=== PATIENT | female | born 1985 | race African-American/Black ===

== ENCOUNTER 2025-05-02 17:08 | Emergency (ER) | payer BC, SELFPAY ==
[2025-05-02] MEDS ORDERED: Ketorolac Tromethamine 30 MG (1 mL) VIAL ONE (17:57)
== END 2025-05-02 18:08 | disposition home or self-care (01) ==
LOC: CSHERS 17:08
DX: S70.01XA Contusion of right hip, initial encounter (principal); N63.10 Unspecified lump in the right breast, unspecified quadrant; L30.8 Other specified dermatitis; X58.XXXA Exposure to other specified factors, initial encounter
CPT/HCPCS: 99283; J1885